=== PATIENT | female | born 1965 | race Caucasian/White ===

== ENCOUNTER 2016-08-22 10:19 | Day surgery (SDC) | payer OTHER ==
[2016-08-22] MEDS ORDERED: LIDOCAINE 1% 5 ML SDV ID PRN (10:38)
[2016-08-22] MEDS ORDERED: LR 1,000 ML IV ONE (10:38)
[2016-08-22] MEDS ORDERED: LIDOCAINE 1% 2 ML INJ ONE (10:50)
[2016-08-22] MEDS ORDERED: MIDAZOLAM 2 MG/2 ML VIAL ONE (11:15)
[2016-08-22] MEDS ORDERED: PROPOFOL/EMULSION 500 MG/50 ML BOTTLE IV ONE (11:18)
[2016-08-22] MEDS ORDERED: fentaNYL 100 MCG/2 ML INJ ONE ×2 (11:18→11:58)
[2016-08-22] MEDS ORDERED: LIDOCAINE 2% 5 ML SDV ONE (11:18)
[2016-08-22] MEDS ORDERED: HYDROmorphONE/DILAUDID 1 MG/ML SYR ONE (11:58)
--- NOTE | 2016-08-22 12:11 | GPN ---
[f rep st] PROCEDURE NOTE DATE OF PROCEDURE: 08/22/2016 PROCEDURE: Colonoscopy. INDICATION: The patient is a 51-year-old female who presents for a screening colonoscopy. CONSENT: Risks, benefits, and alternatives of the procedure were discussed in great detail with the patient. Risk of infection, bleeding, perforation, and sedation were discussed. All questions answered, and informed consent was obtained. MEDICATIONS: Propofol. Please see Anesthesiology record for details. ESTIMATED BLOOD LOSS: None. COLONOSCOPIC EVALUATION: A rectal exam was done and no palpable mass was felt. The scope was introduced into the rectum and advanced to the cecum where the ileocecal valve and appendiceal orifice were seen. The quality of prep was good. The colonic mucosa was carefully examined and no polyps or masses were seen. IMPRESSION: Normal colonoscopy. RECOMMENDATIONS: 1. Repeat colonoscopy in 10 years. 2. Continue previous medications. 3. Advance diet. /[id number]/MODL MTDD
== END 2016-08-22 13:40 | disposition home or self-care (01) ==
LOC: FSGY 10:19
PROVIDERS: ATTEND Internal Medicine Gastroenterology
PROC: 0DJD8ZZ Inspection of Lower Intestinal Tract, Via Natural or Artificial Opening Endoscopic (ICD-10-PCS; principal; 2016-08-22 13:15)
DX: K59.00 Constipation, unspecified (principal); F31.9 Bipolar disorder, unspecified
CPT/HCPCS: J1170; J1200; J2250; J2704; J3010

== ENCOUNTER → 2016-10-15 | Outpatient (CLI) | payer OTHER | LOC: CIMAGING 12:40 | PROVIDERS: ATTEND Internal Medicine | DX: R92.8 Other abnormal and inconclusive findings on diagnostic imaging of breast (principal) | CPT/HCPCS: 76641; G0206 ==

== ENCOUNTER → 2016-10-21 | Day surgery (SDC) | payer OTHER ==
[~2016-10-21] MED LIST: THROMBIN (BOVINE) 5,000 UNIT VIAL TP ONE
== END | disposition home or self-care (01) ==
LOC: FIMAGING 12:07
PROVIDERS: ATTEND Internal Medicine
PROC: BH00ZZZ Plain Radiography of Right Breast (ICD-10-PCS; principal; 2016-10-21)
PROC: 0HBT3ZX Excision of Right Breast, Percutaneous Approach, Diagnostic (ICD-10-PCS; principal; 2016-10-21)
DX: D24.1 Benign neoplasm of right breast (principal); N60.11 Diffuse cystic mastopathy of right breast
CPT/HCPCS: G0206

== ENCOUNTER 2018-07-18 09:49 | Emergency (ER) | payer OTHER ==
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
[2018-07-18 10:32] VITALS: BP 115/83
== END 2018-07-18 10:40 | disposition home or self-care (01) ==
DX: S46.911A Strain of unspecified muscle, fascia and tendon at shoulder and upper arm level, right arm, initial encounter (principal); S16.1XXA Strain of muscle, fascia and tendon at neck level, initial encounter; V49.40XA Driver injured in collision with unspecified motor vehicles in traffic accident, initial encounter; Y92.410 Unspecified street and highway as the place of occurrence of the external cause; Y99.8 Other external cause status; Y93.9 Activity, unspecified

== ENCOUNTER 2018-07-21 10:05 | Emergency (ER) | payer OTHER ==
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
[2018-07-21] MEDS ORDERED: PROMETHAZINE HCL 25 MG/ML INJ IVP ONE (10:32)
[2018-07-21] MEDS ORDERED: HYDROmorphONE/DILAUDID 2 MG/ML INJ IVP ONE (10:32)
[2018-07-21] MEDS ORDERED: NS 1,000 ML IV ONE (10:32)
[2018-07-21 11:11] LABS: PLATELET COUNT 313 10^3/uL (150-400)
[2018-07-21] MEDS ORDERED: IOHEXOL 300 mgI/ML (OMNIPAQUE) 150 ML BTL IV ONE (11:33)
[2018-07-21 12:51] VITALS: BP 121/86
== END 2018-07-21 12:56 | disposition home or self-care (01) ==
DX: K52.9 Noninfective gastroenteritis and colitis, unspecified (principal); M50.323 Other cervical disc degeneration at C6-C7 level; E86.9 Volume depletion, unspecified
CPT/HCPCS: 72125; 74177; 96361; 96374; 96375; 99285; J1170; J1200; J2550; Q9967

== ENCOUNTER → 2018-12-09 | Outpatient (CLI) | payer OTHER | LOC: CIMAGING 14:54 ==